=== PATIENT | male | born 1980 | race Caucasian/White ===

== ENCOUNTER 2023-01-03 12:07 | Emergency (ER) | payer MEDICAID ==
[~2023-01-03] VITALS: Ht 165.1 cm; Wt 69.4 kg
[2023-01-03 12:08] VITALS: BP 109/79
[2023-01-03] MEDS ORDERED: IBUPROFEN 600 MG TAB PO ONE (12:35)
[2023-01-03] MEDS ORDERED: IBUPROFEN 600 MG TAB ONE (13:42)
[2023-01-03] MEDS ORDERED: IBUP-2213 PO (14:01)
[2023-01-03] MEDS ORDERED: ACET-10509 PO (14:01)
[2023-01-03 14:27] VITALS: BP 123/84
--- NOTE | 2023-01-03 14:27 | NUR ---
Patient discharged with v/s stable. Written and verbal after care instructions given. Patient alert, oriented and verbalized understanding of instructions. Ambulatory with steady gait. All questions addressed prior to discharge. ID band removed. Patient advised to follow up with PMD. Rx of Tylenol and Ibuprofen given. Opportunity to ask questions provided and answered. WORK NOTE AND COPY OF X-RAY GIVEN TO PATIENT.
--- NOTE | 2023-01-03 14:32 | NUR ---
The patient's care was reviewed and supervised by ED Agency Nurse 9, RN, RN.
== END 2023-01-03 14:32 | disposition home or self-care (01) ==
LOC: MED 12:07
DX: S63.692A Other sprain of right middle finger, initial encounter (principal); Z79.899 Other long term (current) drug therapy; W18.30XA Fall on same level, unspecified, initial encounter; Y93.89 Activity, other specified; Y92.89 Other specified places as the place of occurrence of the external cause; Y99.8 Other external cause status
CPT/HCPCS: 73130; 99283